=== PATIENT | female | born 1980 | race Caucasian/White ===

== ENCOUNTER 2019-06-20 06:55 | Emergency (ER) | payer OTHER ==
[~2019-06-20] VITALS: Ht 175.3 cm; Wt 86.8 kg
[2019-06-20 06:58] VITALS: BP 131/74
--- NOTE | 2019-06-20 07:38 | NUR ---
UA AND HCG CANCLED PER DR ROBERT
== END 2019-06-20 07:48 | disposition home or self-care (01) ==
LOC: ER 06:56
DX: M54.5 Low back pain (principal); G89.29 Other chronic pain; R51 Headache; W18.39XA Other fall on same level, initial encounter; Y93.89 Activity, other specified; Y92.89 Other specified places as the place of occurrence of the external cause; Y99.8 Other external cause status
CPT/HCPCS: 99284